=== PATIENT | male | born 2000 | race Caucasian/White ===

== ENCOUNTER 2023-09-24 21:42 | Emergency (ER) | payer BC, SELFPAY ==
--- NOTE | ~2023-09-24 | XR_ITS ---
EXAMINATION: XR ankle LT min 3V DATE: 09/24/2023 22:25 INDICATION: Left ankle injury. TECHNIQUE: 4 views of left ankle were obtained. COMPARISON: None. FINDINGS: Bone alignment is normal. No fracture. Joint spaces are normal. IMPRESSION: 1. Normal left ankle. Reviewed, dictated and finalized at location E. ASS TECHNICIAN IMPRESSION: 1. Normal left ankle.
[2023-09-24 22:13] VITALS: BP 160/77; PULSE 92; RESP 16; TEMP 36.7; O2SAT 100
[2023-09-25 01:32] VITALS: BP 137/67; PULSE 78; RESP 19; O2SAT 99
--- NOTE | 2023-09-25 02:01 | ED.LOWEXIN ---
HPI - Extremity Injury (Lower) General Chief Complaint: Extremity Injury, Lower Stated Complaint: possible torn achilles Time Seen by Provider: 09/25/23 01:36 Source: patient Mode of arrival: ambulatory Limitations: no limitations History of Present Illness HPI Narrative: patient is a 23-year-old male who presents ED with report of left ankle pain. Patient reports he was playing basketball earlier tonight and stepped backwards with his left foot to pivot when he felt a sharp pain and pop in his whole left heel/posterior leg. He felt as though somebody kicked him in his ankle. Patient then fell to the ground. He was unable to bear weight on his left foot afterwards. Complains of significant pain to posterior ankle/lower leg. Concerned for achilles injury. Denies any other injuries. Denies numbness. Related Data Allergies Allergy/AdvReac Type Severity Reaction Status Date / Time No Known Allergies Allergy Verified 09/24/23 21:43 Review of Systems Review of Systems: CONSTITUTIONAL: Denies fever, chills, or sweats. MUSCULOSKELETAL: see HPI. NEUROLOGIC: Denies headache, dizziness, numbness, or weakness. All systems reviewed & are unremarkable except as noted in HPI and below Exam Narrative: GENERAL: Well appearing, well-nourished, non-toxic, in no acute distress. HEAD: Normocephalic, atraumatic. RESPIRATORY: Airway patent, respirations nonlabored. CARDIOVASCULAR: Regular rate and rhythm. Pedal pulses intact and symmetric bilaterally. MUSCULOSKELETAL: Moves all extremities. No gross deformities. Mild swelling noted to posterior heel/lower leg in the area of Achilles tendon. Focal tenderness to palpation throughout this area , extending up to mid calf posteriorly. No significant tenderness to medial or lateral malleoli of the left ankle. positive Albarado test. Sensation intact. Capillary refill intact. SKIN: Warm, dry, normal color. NEURO: A&O X3. Speech clear. Cranial nerves II-XII grossly intact. No ataxic movements. PSYCHIATRIC: Appropriate mood and affect. Normal interaction. Course Vital Signs Vital signs: Vital Signs Temperature 98.1 F 09/24/23 22:13 Pulse Rate 92 09/24/23 22:13 Respiratory Rate 16 09/24/23 22:13 Blood Pressure 160/77 H 09/24/23 22:13 Pulse Oximetry 100 09/24/23 22:13 Temperature 98.1 F 09/24/23 22:13 Pulse Rate 92 09/24/23 22:13 Respiratory Rate 16 09/24/23 22:13 Blood Pressure 160/77 H 09/24/23 22:13 Pulse Oximetry 100 09/24/23 22:13 MDM - Extremity Injury (Lower) MDM Narrative Medical decision making narrative: Patient neurovascularly intact. X-ray of left ankle negative for acute fracture. Exam concerning for Achilles tendon rupture with positive Albarado test, no appreciable movement with calf squeeze, focal tenderness and swelling over distribution of achilles. Patient placed in short-leg posterior splint, given crutches. Will be discharged with orthopedic information for follow-up. Discussed rice therapy, pain management, strict return precautions. D/C in stable condition. Medical Records Attestation: I reviewed the patient's medical records. Imaging Data Attestation: I personally reviewed and interpreted this imaging study as follows: Radiologist's impression: ITS Impressions Ankle X-Ray 09/24/23 22:32 IMPRESSION: 1. Normal left ankle. Discharge Plan Discharge Clinical Impression: Achilles tendon rupture Qualifiers: Encounter type: initial encounter Laterality: left Qualified Code(s): S86.012A - Strain of left Achilles tendon, initial encounter Patient Disposition: Home, Self-Care Condition: Stable Instructions: Antibiotic Form, Achilles Tendon Rupture (ED), Tendon Rupture (ED), Tendon Repair (DC) Additional Instructions: Follow-up with orthopedics for further evaluation. Wear splint until seen by orthopedics. Utilize crutches for assistance with walking. Do not bear weight on left foot.
[2023-09-25 02:17] VITALS: BP 153/69; PULSE 75; RESP 19; O2SAT 99
[2023-09-25] MEDS: ACETAMINOPHEN 500 MG TABLET 1000 MG PO (02:31)
== END 2023-09-25 02:37 | disposition home or self-care (01) ==
PROVIDERS: Emergency Provider Physician Assistant
DX: S86.012A Strain of left Achilles tendon, initial encounter (principal); X50.9XXA Other and unspecified overexertion or strenuous movements or postures, initial encounter; Y93.67 Activity, basketball
CPT/HCPCS: 29515; 73610; 99284; A9270